=== PATIENT | male | born 1995 | race Caucasian/White ===

== ENCOUNTER 2016-12-24 13:26 | Emergency (ER) | payer OTHER ==
[~2016-12-24] VITALS: Wt 59.0 kg
[~2016-12-24 13:26] MED LIST: CEPH-443 PO
[2016-12-24] MEDS ORDERED: CYCL-319 PO (15:13)
[2016-12-24] MEDS ORDERED: IBUP-1542 PO (15:13)
--- NOTE | 2016-12-24 15:45 | ERD ---
ER Documentation Chief Complaint Date/Time DATE: 12/24/16 TIME: 15:43 Chief Complaint non traumatic back pain for the past few days no trauma. HPI This is a 21-year-old male presenting to the emergency room complaining of right thoracic back pain rating it moderate and severe that comes and goes for the past week that has been worsening in the past 2 days. Patient denies any trauma, patient states that he does do a lot of heavy lifting at work. Patient denies any cough, chest pain or shortness of breath. Patient states that he is only tried medical marijuana which alleviates at that time. Patient has not tried any other medications. ROS All systems reviewed and are negative except as per history of present illness. Medications Home Meds Active Scripts Cyclobenzaprine Hcl* (Cyclobenzaprine Hcl*) 10 Mg Tablet, 10 MG PO TID, #15 TAB Prov:RASHIDA PUENTE PA-C 12/24/16 Ibuprofen* (Motrin*) 600 Mg Tab, 600 MG PO Q6H Y for PAIN AND OR ELEVATED TEMP, #30 TAB Prov:RASHIDA PUENTE PA-C 12/24/16 Cephalexin* (Keflex*) 500 Mg Capsule, 500 MG PO QID for 7 Days, CAP Prov:HARRIET MONTEIRO PA-C 03/23/16 Allergies Allergies: Coded Allergies: No Known Drug Allergies (Verified Allergy, Unknown, 03/23/16) PMhx/Soc Hx Alcohol Use: No Hx Substance Use: Yes (marijuana) Hx Tobacco Use: No Physical Exam Vitals Vital Signs Date Time Temp Pulse Resp B/P Pulse Ox O2 Delivery O2 Flow Rate FiO2 12/24/16 13:34 98.8 87 20 124/60 98 Physical Exam GENERAL: WD/WN, in no apparent distress, non-toxic appearing HENT: NC/AT EYES: Conjunctiva normal NECK: Supple PULM: Normal labored breathing, patient's lungs are clear to balance station bilaterally CV: Good capillary refill GI: Non-distended, no guarding BACK: no deformities noted, normal spinal curvature, TTP on the right thoracic back region, non-tender on spine midline, EXT: No clubbing, cyanosis, or edema NEURO: Moves on all fours, sensation intact, normal gait SKIN: intact PSYCH: Normal mood Procedures/MDM This is a 21-year-old male presenting to the emergency department complaining of right thoracic back pain which is likely due to a thoracic myofascial strain. Patient had stable vital signs he appears well. He is ambulating well and able to move around. I doubt any acute cardiopulmonary conditions at this time, patient's lungs are clear to auscultation, he had no chest pain. Patient had no risk factors. Patient's pain was located in the muscular region of the right thoracic back, he is nontender to palpation in the spine. low suspicion for spinal abscess, vertebral fracture, cauda equina syndrome, spinal stenosis due to physical examination. Patient is neurovascularly intact. Prescriptions ibuprofen and Flexeril was given to patient, discussed to return to the ED if not improving as expected or follow-up with a primary care physician. Patient understood and agreed with this plan. Departure Diagnosis: Primary Impression: Thoracic myofascial strain Encounter type: initial encounter Qualified Code: S29.019A - Thoracic myofascial strain, initial encounter Condition: Stable Patient Instructions: Thoracic Strain Referrals: [facility] Additional Instructions: FOLLOW UP WITH YOUR PRIMARY CARE PHYSICIAN TOMORROW.Return to this facility if you are not improving as expected. Take all medicines as directed. Return to this facility if you are not improving as expected. RASHIDA PUENTE PA-C Dec 24, 2016 15:45
== END 2016-12-24 15:16 | disposition home or self-care (01) ==
LOC: E/R 13:26
DX: S29.012A Strain of muscle and tendon of back wall of thorax, initial encounter (principal); X50.0XXA Overexertion from strenuous movement or load, initial encounter; Y92.89 Other specified places as the place of occurrence of the external cause
CPT/HCPCS: 99283

== ENCOUNTER 2018-01-06 01:22 | Emergency (ER) | END 2018-01-06 03:39 | disposition home or self-care (01) ==

== ENCOUNTER 2018-12-04 08:55 | Emergency (ER) | payer SELFPAY ==
[~2018-12-04] VITALS: Wt 78.0 kg
[~2018-12-04 08:55] MED LIST changes: +AZIT250T PO; +BENZ-6 PO; +CETI5SOL PO; +CYCL10TA7 PO; +ERYT1OIN6 LEFT EYE; +IBUP-1542 PO; +NAPH15DR69 LEFT EYE
[2018-12-04] MEDS ORDERED: CYCL10TA7 PO (11:58)
[2018-12-04] MEDS ORDERED: IBUP-1542 PO (11:58)
[2018-12-04 12:05] VITALS: BP 129/81; PULSE 84; RESP 18
--- NOTE | 2018-12-04 12:07 | ERD ---
ER Documentation Chief Complaint Chief Complaint NECK PAIN X YEAR HPI 23-year-old male patient with no significant past medical history presents to ED complaining of right-sided neck pain that started 1 year ago. Patient reports that he may have injured it 1 year ago excellently fell. Denies any recent injuries. She describes it as a pinching sensation and rates it a 7 out of 10. States that it feels like the pain is radiating to his head, has a headache as well as sometimes having numbness and tingling in his arms. Denies any fever, chills, neck stiffness, abdominal pain, chest pain, shortness of breath, wheezing. ROS All systems reviewed and are negative except as per history of present illness. Medications Home Meds Active Scripts Ibuprofen* (Motrin*) 600 Mg Tab, 600 MG PO Q6, #30 TAB Prov:ALEJANDRINA GILL PA-C 12/04/18 Cyclobenzaprine Hcl* (Cyclobenzaprine Hcl*) 10 Mg Tablet, 10 MG PO TID, #15 TAB Prov:ALEJANDRINA GILL PA-C 12/04/18 Naphazoline-Pheniramine* (Visine-A*) 15 Ml Drops, 2 DROP LEFT EYE Q4H PRN for RED EYES, #1 BOT Prov:MOHIT GUZMAN NP 01/06/18 Cetirizine Hcl* (Cetirizine Hcl*) 5 Mg/5 Ml Solution, 10 ML PO DAILY, #4 OZ Prov:MOHIT GUZMAN NP 01/06/18 Benzonatate* (Tessalon Perle*) 100 Mg Capsule, 100 MG PO Q8H PRN for COUGH, #20 CAP Prov:MOHIT GUZMAN NP 01/06/18 Azithromycin* (Zithromax*) 250 Mg Tablet, 250 MG PO .GayPACK DIRECTED, #6 TAB TAKE 500 MG (2 TABS) THE FIRST DAY THEN 250 MG (1 TAB) DAYS 2-5 Prov:MOHIT GUZMAN NP 01/06/18 Erythromycin Base (Erythromycin) 1 Gm Oint...g., 1 APPLIC LEFT EYE QID for 7 Days Prov:MOHIT GUZMAN NP 01/06/18 Cyclobenzaprine Hcl* (Cyclobenzaprine Hcl*) 10 Mg Tablet, 10 MG PO TID, #15 TAB Prov:KEISHAMarieRASHIDA Fontenot PA-C 12/24/16 Ibuprofen* (Motrin*) 600 Mg Tab, 600 MG PO Q6H PRN for PAIN AND OR ELEVATED TEMP, #30 TAB Prov:KWAMETAMMYSri Po ALMONTE 12/24/16 Cephalexin* (Keflex*) 500 Mg Capsule, 500 MG PO QID for 7 Days, CAP Prov:HARRIET MONTEIRO PA-C 03/23/16 Allergies Allergies: Coded Allergies: No Known Drug Allergies (Verified Allergy, Unknown, 03/23/16) PMhx/Soc Medical and Surgical Hx: pt denies Medical Hx, pt denies Surgical Hx Hx Alcohol Use: No Hx Substance Use: Yes (marijuana last used last week) Hx Tobacco Use: No Physical Exam Vitals Vital Signs Date Temp Pulse Resp B/P (MAP) Pulse Ox O2 O2 Flow FiO2 Time Delivery Rate 12/04/18 98.1 99 18 137/78 99 08:58 (97) Physical Exam Const: [id number], well-nourished. In no acute distress. Head: Atraumatic, normocephalic. No hematoma. No knight sign. Eyes: Normal Conjunctiva without injection. No purulent discharge. PERRLA. EOMI. Negative Kernig sign and negative presents domingo sign. ENT: Normal external ear. Ear canal without erythema. Tympanic membrane pearly alcala without effusion or bulging. Nasal canal clear with normal turbinates. Moist oropharynx without tonsillar exudates. Non-erythematous pharynx. Uvula midline. No drooling. No trismus. Neck: No cervical midline tenderness. Full range of motion. No meningismus. No cervical lymphadenopathy. No JVD. Resp: Clear to auscultation bilaterally. No wheezing, rhonchi, rales, or crackles. No accessory muscle use. No retractions. Cardio: Regular rate and rhythm. No murmurs, rubs or gallops. Abd: Soft, non tender, non distended. Normal bowel sounds. No palpable masses. No rebound tenderness. No guarding. Negative McBurney's Point. Negative Alves's Sign. Skin: Normal skin turgor. No petechiae or rashes Back: No midline tenderness. No CVA tenderness. Ext: No cyanosis, or edema. Distal pulses intact bilaterally. Neur: Awake and alert. Normal gait. Normal coordination. Cranial Nerves II- VII intact. Normal finger to nose. Muscle strength 5/5. Sensation intact. Psych: Normal Mood and Affect Procedures/MDM 23-year-old male patient with no significant past medical history presents to ED complaining of neck pain. Patient is afebrile and nontoxic appearing. Patient likely has musculoskeletal pain. Patient is ambulating here in the ED without difficulty. Denies saddle anesthesia, numbness or tingling, urine or bowel incontinence, weakness. Low suspicion for meningitis, cauda equina syndrome, cord compression, nephrolithiasis, aortic aneurysm, aortic dissection, epidural abscess, spinal hematoma, malignancy, pyelonephritis, or other emergent conditions. Diagnosis: Neck Pain Discharge medications: Ibuprofen, Cyclobenzaprine Follow up with primary care physician in 1-2 days for referral to see an orthopedic physician for further evaluation and treatment and possible MRI. Instructed patient to return to the ED sooner for any worsening symptoms. Patient's questions were answered. Patient is hemodynamically stable. Patient understood and agreed with discharge plan. Patient discharged stable. Disclaimer: Inadvertent spelling and grammatical errors are likely due to EHR/dictation software use and do not reflect on the overall quality of patient care. Also, please note that the electronic time recorded on this note does not necessarily reflect the actual time of the patient encounter. Departure Diagnosis: Primary Impression: Neck pain Condition: Stable Patient Instructions: Neck Pain, No Trauma, Back And Neck Pain, General Referrals: [facility] YOU HAVE RECEIVED A MEDICAL SCREENING EXAM AND THE RESULTS INDICATE THAT YOU DO NOT HAVE A CONDITION THAT REQUIRES URGENT TREATMENT IN THE EMERGENCY DEPARTMENT. FURTHER EVALUATION AND TREATMENT OF YOUR CONDITION CAN WAIT UNTIL YOU ARE SEEN IN YOUR DOCTORS OFFICE WITHIN THE NEXT 1-2 DAYS. IT IS YOUR RESPONSIBILITY TO MAKE AN APPOINTMENT FOR FOLOW-UP CARE. IF YOU HAVE A PRIMARY DOCTOR --you should call your primary doctor and schedule an appointment IF YOU DO NOT HAVE A PRIMARY DOCTOR YOU CAN CALL OUR PHYSICIAN REFERRAL HOTLINE AT IF YOU CAN NOT AFFORD TO SEE A PHYSICIAN YOU CAN CHOSE FROM THE FOLLOWING [facility] [address]. [facility] [address] [facility] [facility] [address] [facility] [address] [facility] [address] [facility]. [facility] [address] [facility]. [facility] YOU HAVE RECEIVED A MEDICAL SCREENING EXAM AND THE RESULTS INDICATE THAT YOU DO NOT HAVE A CONDITION THAT REQUIRES URGENT TREATMENT IN THE EMERGENCY DEPARTMENT. FURTHER EVALUATION AND TREATMENT OF YOUR CONDITION CAN WAIT UNTIL YOU ARE SEEN IN YOUR DOCTORS OFFICE WITHIN THE NEXT 1-2 DAYS. IT IS YOUR RESPONSIBILITY TO MAKE AN APPOINTMENT FOR FOLOW-UP CARE. IF YOU HAVE A PRIMARY DOCTOR --you should call your primary doctor and schedule and appointment IF YOU DO NOT HAVE A PRIMARY DOCTOR YOU CAN CALL OUR PHYSICIAN REFERRAL HOTLINE AT . IF YOU CAN NOT AFFORD TO SEE A PHYSICIAN YOU CAN CHOSE FROM THE FOLLOWING [facility] INSTITUTIONS: [facility] [address] [place] [address] [facility] [address] [place] [address] [facility] [address] [place] [address] [facility] URGENT CARE/SPECIALTIES Additional Instructions: Call your primary care doctor TOMORROW for an appointment during the next 2-3 days.See the doctor sooner or return here if your condition worsens before your appointment time. ALEJANDRINA GILL PA-C Dec 04, 2018 12:07
== END 2018-12-04 12:05 | disposition home or self-care (01) ==
LOC: FTE 08:55
DX: M54.2 Cervicalgia (principal)
CPT/HCPCS: 72040